=== PATIENT | female | born 1985 | race Asian ===

== ENCOUNTER → 2021-07-16 | Outpatient (CLI) | payer MEDICAID ==
--- NOTE | 2021-07-17 11:34 | MR ---
EXAMINATION TYPE: MR brain wo/w con DATE OF EXAM: 07/16/2021 COMPARISON: Brain MRI 09/07/2020 HISTORY: G40.909 Epilepsy, Seizures, memory loss TECHNIQUE: Multiplanar, multisequence images of the brain and brainstem is performed without and with IV contras t, utilizing 5 mL intravenous Gadavist . FINDINGS: There is motion on the exam. Diffusion weighted images demonstrate no evidence of a recent infarct or other diffusion abnormality. There is no extra-axial fluid collection or significant white matter signal abnormality. The ventr icular system and cisternal spaces are normal in size and appearance. The brain volume is age approp riate. Midline structures demonstrate normal morphology. The craniocervical junction appears within normal limits. Post contrast images demonstrate no abnormal enhancement. The dural venous sinuses appear pa tent. The visualized sinuses are markers for inflammatory change in the right maxillary sinus,, possi ble polyp, and the globes are intact. IMPRESSION: Stable brain MRI, right maxillary sinus disease
== END | disposition home or self-care (01) ==
LOC: RADMRIMAIN 11:29
PROVIDERS: ATTEND Psychiatry & Neurology Neurology
DX: J32.0 Chronic maxillary sinusitis (principal)
CPT/HCPCS: 70553; A9585